=== PATIENT | male | born 1955 | race Caucasian/White ===

== ENCOUNTER → 2016-05-08 | Outpatient (CLI) | payer MEDICAID | END | disposition disaster alternative care site (69) | LOC: GLAB 03-29 13:02 | DX: D35.1 Benign neoplasm of parathyroid gland (principal) ==

== ENCOUNTER → 2016-06-29 | Outpatient (CLI) | payer MEDICAID | END | disposition disaster alternative care site (69) | LOC: GRAD 12:21 | DX: M19.90 Unspecified osteoarthritis, unspecified site (principal); M17.11 Unilateral primary osteoarthritis, right knee ==